=== PATIENT | female | born 1940 | race Two or more races ===

== ENCOUNTER → 2017-11-05 18:12 | Outpatient (CLI) | payer OTHER | END | disposition home or self-care (01) | LOC: RAD 18:12 | DX: G44.311 Acute post-traumatic headache, intractable (principal) ==

== ENCOUNTER 2018-09-29 08:56 | Outpatient (CLI) | payer OTHER | END 2018-09-29 09:01 | disposition home or self-care (01) | LOC: RAD 08:56 | DX: M16.0 Bilateral primary osteoarthritis of hip (principal); M24.852 Other specific joint derangements of left hip, not elsewhere classified; M24.851 Other specific joint derangements of right hip, not elsewhere classified; M47.26 Other spondylosis with radiculopathy, lumbar region ==

== ENCOUNTER → 2019-05-13 | Outpatient (CLI) | payer OTHER | END | disposition home or self-care (01) | LOC: RAD 10:20 | DX: M15.8 Other polyosteoarthritis (principal); M25.562 Pain in left knee; M25.561 Pain in right knee; M25.552 Pain in left hip; M25.551 Pain in right hip ==

== ENCOUNTER → 2019-06-03 | Outpatient (CLI) | payer OTHER | END | disposition home or self-care (01) | LOC: MRI 12:08 | DX: R41.3 Other amnesia (principal) | CPT/HCPCS: 70551 ==

== ENCOUNTER 2020-06-14 15:18 | Outpatient (CLI) | payer OTHER | END 2020-06-14 15:27 | disposition home or self-care (01) | LOC: RAD 15:18 | PROVIDERS: ATTEND Psychiatry & Neurology Neurology | DX: M54.5 Low back pain (principal); M25.551 Pain in right hip ==

== ENCOUNTER 2020-06-28 09:38 | Outpatient (CLI) | payer OTHER | END 2020-06-28 09:52 | disposition home or self-care (01) | LOC: SONOGRAMA 09:38 → MAMO-SONO 09:45 → SONOGRAMA 09:52 | PROVIDERS: ATTEND Psychiatry & Neurology Neurology | DX: M70.61 Trochanteric bursitis, right hip (principal) ==

== ENCOUNTER 2020-09-21 08:01 | Outpatient (CLI) | payer OTHER | END 2020-09-21 08:10 | disposition HB | LOC: MRI 08:01 | DX: M70.61 Trochanteric bursitis, right hip (principal); M70.62 Trochanteric bursitis, left hip | CPT/HCPCS: 72195 ==

== ENCOUNTER 2020-11-02 11:12 | Outpatient (CLI) | payer OTHER | END 2020-11-02 11:32 | disposition home or self-care (01) | LOC: MAMO-SONO 11:12 | PROVIDERS: ATTEND Internal Medicine Geriatric Medicine | DX: Z12.31 Encounter for screening mammogram for malignant neoplasm of breast (principal); Z87.898 Personal history of other specified conditions; N64.4 Mastodynia; C50.812 Malignant neoplasm of overlapping sites of left female breast; C50.811 Malignant neoplasm of overlapping sites of right female breast; N63.10 Unspecified lump in the right breast, unspecified quadrant; N63.20 Unspecified lump in the left breast, unspecified quadrant; N60.12 Diffuse cystic mastopathy of left breast; N60.11 Diffuse cystic mastopathy of right breast ==

== ENCOUNTER 2020-11-15 15:26 | Outpatient (CLI) | payer OTHER | END 2020-11-15 15:32 | disposition home or self-care (01) | LOC: RAD 15:26 | PROVIDERS: ATTEND Internal Medicine Geriatric Medicine | DX: I11.9 Hypertensive heart disease without heart failure (principal); R06.02 Shortness of breath ==

== ENCOUNTER 2021-02-22 10:09 | Emergency (ER) | payer OTHER ==
[~2021-02-22] VITALS: Ht 160 cm; Wt 56.7 kg
[2021-02-22] MEDS ORDERED: SYNTHROID125 MCG (10:24)
[2021-02-22] MEDS ORDERED: NAMENDA5 MG (10:25)
[2021-02-22] MEDS ORDERED: CIPRO500 MG PO (13:55)
[2021-02-22] MEDS ORDERED: DICLOFENAC POTA50 MG PO (13:55)
== END 2021-02-22 14:06 | disposition home or self-care (01) ==
LOC: ER 10:09
DX: S90.512A Abrasion, left ankle, initial encounter (principal); L03.116 Cellulitis of left lower limb; M79.672 Pain in left foot; W20.8XXA Other cause of strike by thrown, projected or falling object, initial encounter; Y93.89 Activity, other specified; Y92.018 Other place in single-family (private) house as the place of occurrence of the external cause; Y99.8 Other external cause status

== ENCOUNTER → 2021-06-01 09:18 | Outpatient (CLI) | payer OTHER ==
[~2021-06-01 09:18] MED LIST: CIPRO500 MG PO; DICLOFENAC POTA50 MG PO; NAMENDA5 MG; SYNTHROID125 MCG
== END | disposition home or self-care (01) ==
LOC: LAB 09:18
PROVIDERS: ATTEND Internal Medicine Hematology & Oncology
DX: D50.8 Other iron deficiency anemias (principal); R79.89 Other specified abnormal findings of blood chemistry; I10 Essential (primary) hypertension; R74.02 Elevation of levels of lactic acid dehydrogenase [LDH]; K76.89 Other specified diseases of liver; D51.1 Vitamin B12 deficiency anemia due to selective vitamin B12 malabsorption with proteinuria; D51.0 Vitamin B12 deficiency anemia due to intrinsic factor deficiency; E03.8 Other specified hypothyroidism; E06.3 Autoimmune thyroiditis; C25.8 Malignant neoplasm of overlapping sites of pancreas; R97.8 Other abnormal tumor markers; C56.9 Malignant neoplasm of unspecified ovary; R97.1 Elevated cancer antigen 125 [CA 125]; R97.0 Elevated carcinoembryonic antigen [CEA]; D51.3 Other dietary vitamin B12 deficiency anemia; I25.119 Atherosclerotic heart disease of native coronary artery with unspecified angina pectoris; G30.0 Alzheimer's disease with early onset; F33.8 Other recurrent depressive disorders

== ENCOUNTER 2021-07-05 09:21 | Outpatient (CLI) | payer OTHER | END 2021-07-05 09:27 | disposition home or self-care (01) | LOC: TOM 09:21 | PROVIDERS: ATTEND Internal Medicine Hematology & Oncology | DX: I10 Essential (primary) hypertension (principal); K59.09 Other constipation; R97.0 Elevated carcinoembryonic antigen [CEA]; D51.0 Vitamin B12 deficiency anemia due to intrinsic factor deficiency; D51.1 Vitamin B12 deficiency anemia due to selective vitamin B12 malabsorption with proteinuria; D51.3 Other dietary vitamin B12 deficiency anemia; I25.119 Atherosclerotic heart disease of native coronary artery with unspecified angina pectoris; E03.8 Other specified hypothyroidism; D50.8 Other iron deficiency anemias; G30.0 Alzheimer's disease with early onset; F33.8 Other recurrent depressive disorders | CPT/HCPCS: 71260; 74177; Q9965 ==